=== PATIENT | female | born 1960 | race Caucasian/White ===

== ENCOUNTER 2024-10-06 18:46 | Observation (INO) | payer OTHER ==
--- OUTSIDE RECORDS SUMMARY | 2024-10-06 18:49 | XMS REPORT | Continuity of Care Document ---
Author Name Unknown Address [address] [facility] [address] [place] [address] [facility] thconnect Address [address] [facility] [place] [address] Care Team Providers Care Rn Acute Care Name Role Phone STEPHANIE GELY Primary Care Physician Terra Jane Attending Clinician NIECY Murdock APRN Attending Clinician EB Lewis APN Attending Clinician VINCENT Roach APN Attending Clinician CRISTAL Staton Attending Clinician Unavaila HI Iglesias APRN Attending Clinician LEONELA Faulkner APN Attending Clinician MEGAN Bates APN Attending Clinician Pascual saenz Encounters Start Date/Time End Date/Time Encounter Type Admission Type Attending Clinicians Care Facility Care Department Encounter ID Source 2024-07-16 11:34:00 Outpatient Terra Elias [facility] [id number] [facility] 2024-07-03 08:46:00 Outpatient Terra Elias [facility] [id number] [facility] 2024-07-01 10:48:00 Outpatient Terra Elias [facility] [id number] [facility] 2024-03-28 13:32:00 Outpatient Terra Elias [facility] [id number] [facility] 2024-03-18 10:36:01 Outpatient Terra Elias [facility] [id number] [facility] 2022-01-21 07:45:00 Inpatient NIECY JARAMILLO KAMLA [id number] [facility] 2020-02-21 10:30:00 Inpatient EB TROTTER ISH KAMLA [id number] [facility] 2023-02-10 10:50:00 2023-02-10 10:50:00 Outpatient CASIMIRO LANGNFATMATAA [facility] [id number] [facility] 2023-02-03 23:16:00 2023-02-04 02:34:00 emergency [id number] 2023-02-03 23:16:00 2023-02-04 02:34:00 Emergency ER CRISTAL CLARK [facility] [id number] [facility] 2022-12-12 08:59:00 2022-12-12 08:59:00 Outpatient HI ZARATE [facility] [id number] [facility] 2022-11-04 08:51:00 2022-11-04 08:51:00 Outpatient CASIMIRO LEONELA NIETO [facility] [id number] [facility] 2021-10-25 09:04:00 2021-10-25 09:04:00 Outpatient MEGAN LLOYD [id number] [facility] 2021-09-08 13:20:00 2021-09-08 13:20:00 Outpatient MEGAN LLOYD [id number] [facility]
[2024-10-06 19:20] LABS: Absolute Eosinophils 0.1 K/uL (0-0.5); Absolute Lymphocytes (CBC) 2.4 K/uL (0.7-4.9); Absolute Monocytes 0.5 K/uL (0.1-1.3); Basophils % 0.3 % (0-1.3); Eosinophils % 1.1 % (0-4.4); Hematocrit 39.3 % (36.0-45.0); Hemoglobin 13.5 g/dL (12.0-15.0); Lymphocytes % 40.5 % (15.3-44.8); MCH 30.6 pg (27.0-35.0); MCHC 34.3 g/dL (32.0-36.0); MCV 89.1 fL (80-100); Monocytes % 8.1 % (3.3-12.3); Nucleated Red Blood Cells % 0.2 % (0-0); Platelets 226 thou/uL (152-406); RBC Red Blood Cell Count 4.41 M/uL (3.86-4.86); Red Cell Distribution Width 14.4 % (12.1-15.2)
[2024-10-06 19:26] LABS: PT Prothrombin Time 12.4 SECONDS (10.0-13.0); Protime INR 1.09
[2024-10-06 19:40] LABS: ALT/SGPT 30 U/L (13-56); AST/SGOT 18 U/L (15-37); Albumin 3.9 g/dL (3.4-5.0); Albumin/Globulin Ratio 1.3 (1.1-1.8); Alkaline Phosphatase 89 U/L (45-117); Anion Gap 7.7 mEq/L (5.0-15.0); BUN Blood Urea Nitrogen 16 mg/dL (7-18); Bicarbonate 29 mEq/L (21-32); Bilirubin Direct 0.2 mg/dL (0-0.2); Bilirubin Indirect, Calculated 0.1 mg/dL (0.2-0.8); Bilirubin Total 0.3 mg/dL (0.2-1.0); Glomerular Filtration Rate 103 ml/min (=/>90); Glucose Level 88 mg/dL (74-106); Magnesium 1.9 mg/dL (1.6-2.4); NT PRO-BNP 25 pg/mL (<125); Potassium 3.7 mEq/L (3.5-5.1); Protein, Total 6.9 g/dL (6.4-8.2); Sodium Level 139 mEq/L (136-145)
[2024-10-06 19:41] LABS: Troponin High Sensitivity < 3.0 pg/mL (<58.9)
--- NOTE | 2024-10-06 20:11 | RAD REPORT ---
EXAMINATION: ONE VIEW CHEST XR CLINICAL INDICATION: CHEST PAIN TECHNIQUE: Frontal chest projection is submitted. Examination is limited by patient positioning and t echnique. COMPARISON: No prior exam. FINDINGS: The lungs are well inflated and clear. The heart is upper limit of normal in size. No displaced fract ures identified. IMPRESSION: No acute intrathoracic abnormalities.
--- NOTE | 2024-10-06 20:20 | EDPHYS ---
Physician Documentation [facility] Name: Petra Mas Age: 64 yrs Sex: Female : 1960 Arrival Date: 10/06/2024 Time: 18:46 Bed 4 Private MD: ED Physician Jr Palomino HPI: 10/06 19:08 This 64 yrs old Unknown Female presents to ER via Ambulatory with complaints of Chest sp3 Pain. 19:08 64-year-old female with history of myocardial infarction with stent placement, sp3 hyperlipidemia, hypertension presents to the ED with off-and-on chest pain for 1 week described as substernal in nature and dull similar to her prior [place] presentation. She denies any other symptoms including fever, shortness of breath, cough, back pain, abdominal pain, vomit, diarrhea, syncope, near syncope, focal neurological deficit, rash, known sick contacts, travel history, prolonged immobilization or prior PE or DVT, or any other signs or symptoms on ROS at this time.. Historical: - Allergies: 18:59 No Known Allergies; jl7 - Home Meds: 18:59 Plavix Oral [Active]; jl7 - PMHx: 18:59 Myocardial infarction; Hypercholesterolemia; Hypertensive disorder; jl7 - Immunization history:: Adult Immunizations unknown. - Infectious Disease History:: Denies. - Social history:: Smoking status: Patient reports the use of cigarette tobacco products, smokes one-half pack cigarettes per day. ROS: 19:09 Constitutional: Negative for fever, chills, and weight loss, Eyes: Negative for injury, sp3 pain, redness, and discharge, ENT: Negative for injury, pain, and discharge, Neck: Negative for injury, pain, and swelling, Respiratory: Negative for shortness of breath, cough, wheezing, and pleuritic chest pain, Abdomen/GI: Negative for abdominal pain, nausea, vomiting, diarrhea, and constipation, Back: Negative for injury and pain, MS/Extremity: Negative for injury and deformity, Skin: Negative for injury, rash, and discoloration, Neuro: Negative for headache, weakness, numbness, tingling, and seizure, Psych: Negative for depression, anxiety, suicide ideation, homicidal ideation, and hallucinations, Allergy/Immunology: Negative for hives, rash, and allergies, Endocrine: Negative for neck swelling, polydipsia, polyuria, polyphagia, and marked weight changes, Hematologic/Lymphatic: Negative for swollen nodes, abnormal bleeding, and unusual bruising, 19:09 All other systems are negative, Exam: 19:10 Constitutional: This is a well developed, well nourished patient who is awake, alert, sp3 and in no acute distress. Head/Face: Normocephalic, atraumatic. Eyes: Pupils equal round and reactive to light, extra-ocular motions intact. Lids and lashes normal. Conjunctiva and sclera are non-icteric and not injected. Cornea within normal limits. Periorbital areas with no swelling, redness, or edema. Neck: Trachea midline, no thyromegaly or masses palpated, and no cervical lymphadenopathy. Supple, full range of motion without nuchal rigidity, or vertebral point tenderness. No Meningismus. Cardiovascular: Regular rate and rhythm with a normal S1 and S2. No gallops, murmurs, or rubs. Normal PMI, no JVD. No pulse deficits. Respiratory: Lungs have equal breath sounds bilaterally, clear to auscultation and percussion. No rales, rhonchi or wheezes noted. No increased work of breathing, no retractions or nasal flaring. Abdomen/GI: Soft, non-tender, with normal bowel sounds. No distension or tympany. No guarding or rebound. No evidence of tenderness throughout. Back: No spinal tenderness. No costovertebral tenderness. Full range of motion. Skin: Warm, dry with normal turgor. Normal color with no rashes, no lesions, and no evidence of cellulitis. MS/ Extremity: Pulses equal, no cyanosis. Neurovascular intact. Full, normal range of motion. Neuro: Awake and alert, GCS 15, oriented to person, place, time, and situation. Cranial nerves II-XII grossly intact. Motor strength 5/5 in all extremities. Sensory grossly intact. Cerebellar exam normal. Normal gait. Psych: Awake, alert, with orientation to person, place and time. Behavior, mood, and affect are within normal limits. 19:10 ECG was reviewed by the Attending Physician. EKG demonstrates sinus bradycardia 55 bpm with normal intervals, normal QRS, normal axis, nonspecific diffuse ST/T changes without evidence of acute ischemia. 19:10 Chest/axilla: Normal chest wall appearance and motion. Nontender with no deformity. sp3 No lesions are appreciated. Vital Signs: 18:57 BP 125 / 80; Pulse 60; Resp 15; Temp 97.9; Pulse Ox 100% ; Weight 80.74 kg; Height 5 jl7 ft. 6 in. ; Pain 8/10; 20:10 BP 118 / 68; Pulse 59; Resp 12; Pulse Ox 98% on R/A; le1 18:57 Body Mass Index 28.73 (80.74 kg, 167.64 cm) 7 18:57 Pain Scale: Adult jl7 MDM: 18:58 Medical Screening Exam initiated sp3 19:10 Data reviewed: vital signs, nurses notes, lab test result(s), EKG, radiologic studies. sp3 ED course: 64-year-old female with chest pain in setting of cardiac history. Differential diagnosis includes acute coronary syndrome, muscle skeletal pain, other pulmonary process, influenza, COVID, among others. Workup will include EKG, chest x-ray general labs including troponin and nasal swabs. Disposition probable admission for 23 observation and cardiology consultation.. 10/06 18:59 Order name: Basic Metabolic Panel; Complete Time: 20:17 sp3 10/06 18:59 Order name: CBC with Diff; Complete Time: 20:17 sp3 10/06 18:59 Order name: LFT's; Complete Time: 20:17 sp3 10/06 18:59 Order name: Magnesium; Complete Time: 20:17 sp3 10/06 18:59 Order name: NT PRO-BNP; Complete Time: 20:17 sp3 10/06 18:59 Order name: PT-INR; Complete Time: 20:17 sp3 10/06 18:59 Order name: Troponin HS; Complete Time: 20:17 sp3 10/06 19:11 Order name: COVID-19 Ag + Flu A+B Ag; Complete Time: 20:35 sp3 10/06 21:37 Order name: Basic Metabolic Panel EDMS 10/06 21:37 Order name: Basic Metabolic Panel EDMS 10/06 21:37 Order name: CBC with Automated Diff EDMS 10/06 21:37 Order name: CBC with Automated Diff EDMS 10/06 21:37 Order name: Troponin High Sensitivity EDMS 10/06 21:37 Order name: Troponin High Sensitivity EDMS 10/06 21:37 Order name: Troponin High Sensitivity EDMS 10/06 21:37 Order name: Troponin High Sensitivity EDMS 10/06 18:59 Order name: XRAY Chest (1 view); Complete Time: 20:17 sp3 10/06 21:37 Order name: Echo with Doppler EDMS 10/06 18:59 Order name: EKG; Complete Time: 18:59 sp3 10/06 18:59 Order name: Cardiac monitoring; Complete Time: 19:02 sp3 10/06 18:59 Order name: EKG - Nurse/Tech; Complete Time: 19:02 sp3 10/06 18:59 Order name: IV Saline Lock; Complete Time: 19:08 sp3 10/06 18:59 Order name: Labs collected and sent; Complete Time: 19:08 sp3 10/06 18:59 Order name: O2 Per Protocol; Complete Time: 19:08 sp3 10/06 18:59 Order name: O2 Sat Monitoring; Complete Time: 19:08 sp3 Administered Medications: No medications were administered Disposition Summary: 10/06/24 20:19 Hospitalization Ordered Notes: Hospitalization Status: Observation sp3 Provider: Prince Ramses sp3 Location: Telemetry/MedSurg (observation) sp3 Condition: Stable sp3 Problem: an acute exacerbation sp3 Symptoms: have worsened sp3 Bed/Room Type: Standard sp3 Room Assignment: [facility](10/06/24 21:08) vc1 Diagnosis - Chest pain sp3 Forms: - Medication Reconciliation Form sp3 - SBAR form sp3 - Leadership Thank You Letter sp3 Signatures: Dispatcher [employer] Kyle Sanches RN RN jl7 Jr Palomino MD MD sp3 Tracy Aly RN RN vc1 Corrections: (The following items were deleted from the chart) 21:08 20:19 sp3 vc1 21:43 21:37 Troponin High Sensitivity ordered. EDMS EDMS
--- NOTE | 2024-10-06 20:20 | ER ---
Nurse's Notes [facility] Name: Petra Mas Age: 64 yrs Sex: Female : 1960 Arrival Date: 10/06/2024 Time: 18:46 Bed 4 Private MD: Diagnosis: Chest pain Presentation: 10/06 18:57 Chief complaint: Patient states: Midsternal CP x 1 week, radiates straight to back. jl7 Coronavirus screen: At this time, the client does not indicate any symptoms associated with coronavirus-19. Ebola Screen: No symptoms or risks identified at this time. Initial Sepsis Screen: Does the patient meet any 2 criteria? No. Patient's initial sepsis screen is negative. Does the patient have a suspected source of infection? No. Patient's initial sepsis screen is negative. Risk Assessment: Do you want to hurt yourself or someone else? Patient reports no desire to harm self or others. Onset of symptoms was September 29, 2024. 18:57 Method Of Arrival: Ambulatory [facility] 18:57 Acuity: JAMISON 2 jl7 Triage Assessment: 18:59 General: Appears in no apparent distress. uncomfortable, Behavior is calm, cooperative, jl7 appropriate for age. Pain: Complains of pain in mid-sternal area Pain currently is 8 out of 10 on a pain scale. Cardiovascular: Patient's skin is warm and dry. Historical: - Allergies: 18:59 No Known Allergies; jl7 - Home Meds: 18:59 Plavix Oral [Active]; jl7 - PMHx: 18:59 Myocardial infarction; Hypercholesterolemia; Hypertensive disorder; jl7 - Immunization history:: Adult Immunizations unknown. - Infectious Disease History:: Denies. - Social history:: Smoking status: Patient reports the use of cigarette tobacco products, smokes one-half pack cigarettes per day. Screenin:10 [facility] ED Fall Risk Assessment (Adult) History of falling in the last 3 months, le1 including since admission No falls in past 3 months (0 pts) Confusion or Disorientation No (0 pts) Intoxicated or Sedated No (0 pts) Impaired Gait No (0 pts) Mobility Assist Device Used No (0 pt) Altered Elimination No (0 pt) Score/Fall Risk Level 0 - 2 = Low Risk Oriented to surroundings, Maintained a safe environment, Educated pt \T\ family on fall prevention, incl call for assistance when getting out of bed, Assessed \T\ reinforced patient's understanding of fall precautions, Hourly rounding (assess needs \T\ fall precautionary measures) done. Abuse screen: Denies threats or abuse. Denies injuries from another. Nutritional screening: No deficits noted. Tuberculosis screening: No symptoms or risk factors identified. Assessment: 20:09 General: Appears in no apparent distress. comfortable, Behavior is calm, cooperative, le1 appropriate for age. Pain: Complains of pain in chest Pain does not radiate. Pain currently is 4 out of 10 on a pain scale. Quality of pain is described as pressure, Pain began. Neuro: No deficits noted. Cardiovascular: No deficits noted. Respiratory: No deficits noted. GI: No deficits noted. : No deficits noted. EENT: No deficits noted. Vital Signs: 18:57 BP 125 / 80; Pulse 60; Resp 15; Temp 97.9; Pulse Ox 100% ; Weight 80.74 kg; Height 5 jl7 ft. 6 in. ; Pain 8/10; 20:10 BP 118 / 68; Pulse 59; Resp 12; Pulse Ox 98% on R/A; le1 18:57 Body Mass Index 28.73 (80.74 kg, 167.64 cm) jl7 18:57 Pain Scale: Adult jl7 ED Course: 18:49 Patient arrived in ED. am2 18:58 Jr Palomino MD is Attending Physician. sp3 18:59 Triage completed. jl7 18:59 Arm band placed on right wrist. jl7 19:08 Troponin HS Sent. kb4 19:08 PT-INR Sent. kb4 19:08 Magnesium Sent. kb4 19:08 LFT's Sent. kb4 19:08 CBC with Diff Sent. kb4 19:08 Basic Metabolic Panel Sent. kb4 19:08 NT PRO-BNP Sent. kb4 19:08 Initial lab(s) drawn, by me, sent to lab. EKG done. Inserted saline lock: 20 gauge in kb4 left antecubital area, using aseptic technique. Blood collected. Flushed with 10 mL NS. 19:43 Faith Holley, RN is Primary Nurse. le1 20:05 XRAY Chest (1 view) In Process Unspecified. EDMS 20:10 Patient has correct armband on for positive identification. Bed in low position. Call le1 light in reach. Side rails up X2. Provided Education on: Informed to use call light if needing assistance. . Client placed on continuous cardiac and pulse oximetry monitoring. NIBP monitoring applied. fish hatchery assistant on. Pulse ox on. NIBP on. 20:19 Prince Pearce MD is Hospitalizing Provider. sp3 22:59 No provider procedures requiring assistance completed. Patient admitted, IV remains in ha1 place. Patient maintains SpO2 saturation greater than 95% on room air. Administered Medications: No medications were administered Medication: 23:00 VIS not applicable for this client. ha1 Outcome: 20:19 Decision to Hospitalize by Provider. sp3 22:59 Admitted to Tele accompanied by tech, via wheelchair, room 412, with chart, ha1 22:59 Condition: stable 22:59 Instructed on the need for admit, Demonstrated understanding of instructions, 23:01 Patient left the ED. ha1 Signatures: Dispatcher [employer] EDMS Kyle Diego RN RN mira7 Erica Gonzales am2 Jr Palomino MD MD sp3 Gemma Valdes RN RN ha1 Faith Holley RN RN le1 Laura Silver kb4
[2024-10-06 20:31] LABS: Influenza A Ag Negative; Influenza B Ag Negative; SARS-CoV-2 Antigen Rapid Res Negative (Negative)
[2024-10-06] MEDS ORDERED: NITROGLYCERIN 0.4 MG/TAB SL PRN (21:33)
[2024-10-06] MEDS ORDERED: SODIUM CHLORIDE 0.9% 10ML INJ IV PRN (21:35)
[2024-10-06] MEDS: PANTOPRAZOLE 40 MG INJ IVP SCH (21:35)
--- NOTE | 2024-10-06 21:40 | P.HP ---
Certification for Inpatient Patient admitted to: Observation With expected LOS: <2 Midnights Practitioner: I am a practitioner with admitting privileges, knowledge of patient current condition, hospital course, and medical plan of care. Services: Services provided to patient in accordance with Admission requirements found in Title 42 Section 412.3 of the Code of Federal Regulations Patient History Date of Service: 10/06/24 Reason for admission: Chest pain History of Present Illness: Patient is a 64-year-old female with a past medical history of hypertension, non-insulin diabetes mellitus, hyperlipidemia and coronary disease status post PCI back in 2019 in [place]. She presented to the ER complaining of chest pain radiating to the back and to her left upper extremity. She denies orthopnea or lower extremity edema. Patient is reporting paresthesia of her left hand. She is not out of her nitroglycerin. Therefore, she did not take any medication when her symptoms started. Patient states she has been dealing with a lot of stress recently. She just lost her back in May 2024. Her first troponin in the ER is negative. Allergies No Known Allergies Allergy (Unverified 10/06/24 20:55) Physical Examination - Physical Exam General: Acute distress HEENT: Atraumatic, Normocephalic Respiratory: Clear to auscultation bilaterally, Normal air movement Cardiovascular: No edema, Normal pulses, Regular rate/rhythm, Normal S1 S2 Neurological: Normal speech - Studies Laboratory Data (last 24 hrs) 10/06/24 10/06/24 10/06/24 19:12 19:12 19:12 WBC 6.00 Hgb 13.5 Hct 39.3 Plt Count 226 PT 12.4 INR 1.09 Sodium 139 Potassium 3.7 BUN 16 Creatinine 0.53 L Glucose 88 Magnesium 1.9 Total Bilirubin 0.3 AST 18 ALT 30 Alkaline Phosphatase 89 Assessment and Plan - Problems (Diagnosis) (1) Chest pain Current Visit: Yes Status: Acute (2) Coronary artery disease Current Visit: Yes Status: Acute (3) Hypertension Current Visit: Yes Status: Acute (4) Hyperlipidemia Current Visit: Yes Status: Acute (5) Type 2 diabetes mellitus Current Visit: Yes Status: Acute - Plan Assessment This is a 64-year-old female with known history of coronary disease status post PCI back in 2019. She is being admitted for ACS rule out after she presented with chest pain radiating to her back and left upper extremity. Her first troponin is negative. Patient is slightly hypotensive in the ER with SBP of 105 mmHg. Chest pain, ACS rule out Hypotension Coronary disease status post PCI Type 2 diabetes mellitus Hyperlipidemia Hypertension Plan: Will admit under observation with telemetry Trend troponins Obtain a 2D echo and lipid panel Will give a trial of IV PPI to address out stress-induced ulcer Cardiology consulted in the morning Monitor for blood pressure Reconcile rest of home medications - Advance Directives Does patient have a Living Will: No Does patient have a Durable POA for Healthcare: No
[2024-10-06] MEDS ORDERED: PANTOPRAZOLE 40 MG INJ ONE (22:45)
[2024-10-06 22:59] VITALS: BMI 30.2
[2024-10-07 06:23] LABS: Absolute Eosinophils 0.1 K/uL (0-0.5); Absolute Lymphocytes (CBC) 2.3 K/uL (0.7-4.9); Absolute Monocytes 0.4 K/uL (0.1-1.3); Absolute Neutrophil 1.8 K/uL (1.8-8.0); Basophils % 0.3 % (0-1.3); Eosinophils % 2.2 % (0-4.4); Hematocrit 37.5 % (36.0-45.0); Hemoglobin 12.9 g/dL (12.0-15.0); Lymphocytes % 49.6 % (15.3-44.8); MCHC 34.5 g/dL (32.0-36.0); MCV 89.8 fL (80-100); Monocytes % 8.2 % (3.3-12.3); Neutrophils % 39.7 % (41.7-73.7); Nucleated Red Blood Cells % 0.1 % (0-0); Platelets 216 thou/uL (152-406); RBC Red Blood Cell Count 4.17 M/uL (3.86-4.86); Red Cell Distribution Width 14.8 % (12.1-15.2)
[2024-10-07 06:40] LABS: Anion Gap 4.8 mEq/L (5.0-15.0); Potassium 3.8 mEq/L (3.5-5.1); Troponin High Sensitivity 3.8 pg/mL (<58.9)
[2024-10-07 07:57] LABS: Blood Morphology Comment NOTED (NOT SEEN); Differential Total Cells Count 100; Eosinophils 3 % (0-3); Lymphocytes 51 % (15-42); Monocytes 8 % (0-10); Platelet Estimate ADEQ; Segmented Neutrophils 36 % (40-80)
[2024-10-07 07:58] LABS: Burr Cells 1+
[2024-10-07] MEDS: ASPIRIN EC 81 MG TAB PO SCH (08:35)
[2024-10-07] MEDS: ENOXAPARIN 40 MG/0.4 ML SQ SCH (08:36)
--- NOTE | 2024-10-07 09:11 | P.CNS ---
Date of Consult: 10/07/24 Chief Complaint: Chest pain History of Present Illness: Patient with PMH of CAD, PCI 2020 in [place], HTN, HLD, DM presented with unstable angina for 1 week, denies any other cardiac symptoms. Allergies No Known Allergies Allergy (Unverified 10/06/24 20:55) Home medications list reviewed: Yes Home Medications: Cholecalciferol (Vitd3)/Vit K2 [Vit D3-Vit K2 125-100 Mcg Sfgl] 125 mcg PO DAILY 10/06/24 Clopidogrel Bisulfate [Plavix] 75 mg PO DAILY 10/06/24 Fluticasone [Flonase 50MCG Nasal [place]*] 1 spray VIOLA BID 10/06/24 Naproxen Sodium [Aleve] 1 tab PO BID PRN 10/06/24 RX: Albuterol Sulfate [Proair Respiclick] 1 puff IH Q4HR PRN 10/06/24 RX: Atorvastatin Calcium [Lipitor] 80 mg PO DAILY 10/06/24 RX: Azithromycin Tab [Zithromax*] 250 mg PO DAILY 10/06/24 RX: Metoprolol Tartrate [Lopressor*] 25 mg PO BID 10/06/24 RX: Promethazine Syrup [Phenergan*] 5 ml PO Q6HR PRN 10/06/24 RX: Sertraline HCl [Zoloft] 100 mg PO BID 10/06/24 RX: Tramadol HCl [Ultram] 50 mg PO ONCE PRN 10/06/24 RX: Trazodone HCl 50 mg PO BEDTIME PRN 10/06/24 lisinopriL [Lisinopril] 5 mg PO DAILY 10/06/24 predniSONE [Prednisone] 2 tab PO DAILY 10/06/24 - Past Medical/Surgical History -: hysterectomy -: gall bladder -: stents - Social History Smoking Status: Current every day smoker Alcohol use: No CD- Drugs: No Caffeine use: Yes Place of Residence: Home Review of Systems 10-point ROS is otherwise unremarkable Physical Examination Temp Pulse Resp BP Pulse Ox 97.4 F 60 18 109/61 98 10/07/24 08:00 10/07/24 08:00 10/07/24 08:00 10/07/24 08:00 10/07/24 08:00 General: Alert, In no apparent distress HEENT: Atraumatic, PERRLA, Mucous membr. moist/pink, EOMI, Sclerae nonicteric Neck: Supple, 2+ carotid pulse no bruit, No LAD, Without JVD or thyroid abnormality Respiratory: Clear to auscultation bilaterally, Normal air movement Cardiovascular: Regular rate/rhythm, Normal S1 S2 Gastrointestinal: Normal bowel sounds, No tenderness Musculoskeletal: No tenderness Integumentary: No rashes Neurological: Normal gait, Normal speech, Normal tone, Normal affect Lymphatics: No axilla or inguinal lymphadenopathy Laboratory Data (last 24 hrs) 10/06/24 10/06/24 10/06/24 19:12 19:12 19:12 WBC 6.00 Hgb 13.5 Hct 39.3 Plt Count 226 PT 12.4 INR 1.09 Sodium 139 Potassium 3.7 BUN 16 Creatinine 0.53 L Glucose 88 Magnesium 1.9 Total Bilirubin 0.3 AST 18 ALT 30 Alkaline Phosphatase 89 - Problems (1) Unstable angina Current Visit: Yes Status: Acute Plan: NPO for coronary angiogram ASA 81 mg daily Lipitor 80 mg daily get echo (2) Hyperlipidemia Current Visit: Yes Status: Acute Plan: continue lipitor (3) Hypertension Current Visit: Yes Status: Acute Plan: reconcile and resume her home medications.
[2024-10-07] MEDS: ACETAMINOPHEN 500 MG TAB PO PRN (10:26)
[2024-10-07] MEDS: NA CHLORIDE 0.9% 500 ML ONE (11:08)
[2024-10-07] MEDS ORDERED: HEPARIN 10,000 UNIT/10 ML VIAL IV ONE (11:19)
[2024-10-07] MEDS ORDERED: HEPA 1000U/500MLS 2,000 UNIT/1,000 ML BAG IV ONE (11:19)
[2024-10-07] MEDS ORDERED: LIDOCAINE 1% 20 ML MDV ONE (11:20)
[2024-10-07] MEDS ORDERED: HEPARIN 5000 UNIT/ML 1 ML VIAL ONE (11:20)
--- NOTE | 2024-10-07 11:52 | P.PN ---
Date of Service: 10/07/24 Subjective: ROS: 10 point ROS as noted above, otherwise negative Physical Exam: GEN: Alert, oriented, NAD CV: Regular rate and rhythm, no edema Pulm: Nonlabored respirations on room air, clear bilaterally ABD: soft, nontender, nondistended Integumentary: No rashes Neuro: Normal speech, normal affect Problem List: Unstable Angina Hx of CAD s/p PCI (2019) Hypertension Hyperlipidemia NIDDM2 Unstable Angina Hx of CAD s/p PCI (2019) on admission, presents with chest pain radiating to left upper extremity. Denies edema/orthopnea trend troponin's - negative x2 so far Monitor on telemetry echo completed; pending official report Dr. Mcclain planning for C NPO for [facility] aspirin, statin PRN nitro Hypertension Hyperlipidemia confirm home meds, restart as appropriate NIDDM2 accu-cheks, SSI VTE: Lovenox Code: Full Dispo: Home Pending LHC, cardiology recs Time Spent Managing Pts Care (In Minutes): 55
--- NOTE | 2024-10-07 12:04 | EKG ---
Test Date: 2024-10-06 Test Time: 18:53:55 [employer] Dive Training Instructor: SCARLET MEASUREMENT RESULTS: Intervals: Rate: 55 NE: 148 QRSD: 78 QT: 410 QTc: 392 Jones: P: 40 NE: 148 QRS: 48 T: 25 INTERPRETIVE STATEMENTS: Sinus bradycardia T wave abnormality, consider anterior ischemia Abnormal ECG No previous ECG available for comparison Electronically Signed On 10-07-24 12:02:33 COLLAR SEWER by Pan Mcclain
[2024-10-07] MEDS ORDERED: MIDAZOLAM HCL 2 MG/2 ML INJ ONE (12:15)
[2024-10-07] MEDS ORDERED: FENTANYL CITR 100 MCG/2 ML ONE (12:15)
[2024-10-07] MEDS ORDERED: CLOPIDOGREL 75 MG TABLET ONE (12:16)
[2024-10-07] MEDS ORDERED: TICAGRELOR 90 MG TABLET PO ONE (12:16)
[2024-10-07 12:31] VITALS: TEMP 97.8
--- NOTE | 2024-10-07 12:52 | ECHO ---
HEIGHT: 5 ft 4 in WEIGHT: 176 lb 0 oz DATE OF STUDY: 10/07/[address]: Prince Gianni Peacre MD 2-DIMENSIONAL: YES M.MODE: YES DOPPLER: YES COLOR FLOW: YES TDS: PORTABLE: YES DEFINITY: BUBBLE STUDY: DIAGNOSIS: CHEST PAIN CARDIAC HISTORY: CATHERIZATION: YES SURGERY: PROSTHETIC VALVE: PACEMAKER: MEASUREMENTS (cm) DIASTOLIC (NORMALS) SYSTOLIC (NORMALS) IVSd 1.0 (0.6-1.2) LA Diam 2.7 (1.9-4.0) LVEF 61% LVIDd 4.8 (3.5-5.7) LVIDs 3.3 (2.0-3.5) %FS 33% LVPWd 1.1 (0.6-1.2) Ao Diam 2.6 (2.0-3.7) 2 DIMENSIONAL ASSESSMENT: RIGHT ATRIUM: NORMAL LEFT ATRIUM: NORMAL RIGHT VENTRICLE: NORMAL LEFT VENTRICLE: NORMAL TRICUSPID VALVE: TRACE TRICUSPID REGURGITATION MITRAL VALVE: TRACE MITRAL REGURGITATION PULMONIC VALVE: NORMAL AORTIC VALVE: NORMAL PERICARDIAL EFFUSION: NONE AORTIC ROOT: NORMAL LEFT VENTRICULAR WALL MOTION: NORMAL DOPPLER/COLOR FLOW: GRADE I DIASTOLIC DYSFUNCTION COMMENTS: 1. NORMAL LEFT VENTRICULAR SYSTOLIC FUNCTION, EJECTION FRACTION 60-65%, NORMAL WALL MOTION 2. GRADE I DIASTOLIC DYSFUNCTION 3. NORMAL FILLING PRESSURE (0-5 mmHg) TECHNOLOGIST: VITA RAMOS
[2024-10-07 14:25] VITALS: O2SAT 100
[2024-10-07 16:10] VITALS: BP 109/50
[2024-10-07] MEDS ORDERED: ATORVASTATIN 80 MG TAB PO SCH (21:00)
--- NOTE | 2024-10-07 22:19 | OP ---
Date of Procedure: 10/07/2024 Surgeon: Pan Mcclain Procedure Performed: Selective coronary angiogram. Indication For Procedure: Unstable angina. Complications: None. Estimated Blood Loss: Less than 50 cc. Access: Right radial, closed by TR band. Sedation Time: 20 minutes with 1 of Versed and 25 of fentanyl. Description Of Procedure: After risks, benefits, and alternatives were explained to the patient, the patient agreed to proceed with procedure and signed informed consent. The patient was brought back to the laboratory mechanic helper, prepped and draped in sterile fashion. Time-out was performed. Sedation was admini stered. Next, right radial access was obtained using ultrasound-guided micropuncture technique. Tig er 4 catheter was advanced over J-wire to the aortic root. Selective angiogram was done. At the end of procedure, catheter was removed over a J-wire. Sheath was removed. TR band was applied. Hemost asis was achieved. The patient was moved back to recovery in stable condition. Findings: 1. Left main: Normal. 2. LAD: Proximal diffuse 20% to 30% disease, mid stent patent, then distal mild luminal irregulariti es. 3. Left circumflex: Mild luminal irregularities. 4. RCA: Proximal to mid 30% to 40% disease and mild luminal irregularities. Assessment And Plan: Mild left anterior descending and right coronary artery disease with patent mid left anterior descending stent. Plan is to continue medical treatment. KHADIJAH Voice ID: [id number] Report ID: [id number]
--- NOTE | 2024-10-14 16:34 | P.DS ---
Admission Date: 10/06/24 Discharge Date: 10/07/24 Disposition: ROUTINE DISCHARGE Discharge Condition: GOOD Reason for Admission: Chest pain Vital Signs/Physical Exam: Temp Pulse Resp BP Pulse Ox 97.8 F 57 16 109/50 L 99 10/07/24 16:00 10/07/24 16:00 10/07/24 16:00 10/07/24 16:00 10/07/24 16:00 Laboratory Data at Discharge: WBC 4.60 thou/uL (4.3-10.9) 10/07/24 05:37 Hgb 12.9 g/dL (12.0-15.0) 10/07/24 05:37 Hct 37.5 % (36.0-45.0) 10/07/24 05:37 Plt Count 216 thou/uL (152-406) 10/07/24 05:37 PT 12.4 SECONDS (10.0-13.0) 10/06/24 19:12 INR 1.09 10/06/24 19:12 Sodium 142 mEq/L (136-145) 10/07/24 05:37 Potassium 3.8 mEq/L (3.5-5.1) 10/07/24 05:37 BUN 14 mg/dL (7-18) 10/07/24 05:37 Creatinine 0.42 mg/dL (0.55-1.02) L 10/07/24 05:37 Glucose 87 mg/dL (74-106) 10/07/24 05:37 Magnesium 1.9 mg/dL (1.6-2.4) 10/06/24 19:12 Total Bilirubin 0.3 mg/dL (0.2-1.0) 10/06/24 19:12 AST 18 U/L (15-37) 10/06/24 19:12 ALT 30 U/L (13-56) 10/06/24 19:12 Alkaline Phosphatase 89 U/L (45-117) 10/06/24 19:12 Lipase 28 U/L (13-75) 10/07/24 05:37 Home Medications: Albuterol Sulfate [Proair Respiclick] 1 puff IH Q4HR PRN 10/06/24 Atorvastatin Calcium [Lipitor] 80 mg PO DAILY 10/06/24 Azithromycin Tab [Zithromax*] 250 mg PO DAILY 10/06/24 Cholecalciferol (Vitd3)/Vit K2 [Vit D3-Vit K2 125-100 Mcg Sfgl] 125 mcg PO DAILY 10/06/24 Clopidogrel Bisulfate [Plavix] 75 mg PO DAILY 10/06/24 Fluticasone [Flonase 50MCG Nasal [place]*] 1 spray VIOLA BID 10/06/24 Metoprolol Tartrate [Lopressor*] 25 mg PO BID 10/06/24 Promethazine Syrup [Phenergan*] 5 ml PO Q6HR PRN 10/06/24 Sertraline HCl [Zoloft] 100 mg PO BID 10/06/24 Tramadol HCl [Ultram] 50 mg PO ONCE PRN 10/06/24 Trazodone HCl 50 mg PO BEDTIME PRN 10/06/24 lisinopriL [Lisinopril] 5 mg PO DAILY 10/06/24 predniSONE [Prednisone] 2 tab PO DAILY 10/06/24 Physician Discharge Instructions: Physician discharge instructions: Patient presented with chest pain x1 week. Troponin's were negative x3. EKG without STEMI criteria. Rest of her labwork on admission was unremarkable. Patient was seen and evaluated by Dr. Mcclain, cardiology. Given her presentation of symptoms and prior cardiac history, recommended left heart cath to further evaluate. Left heart cath done 3 no significant stenosis/atherosclerosis to warrant intervention. Patient was feeling better, chest pain improved, breathing okay on room air and was deemed stable for discharge. Echocardiogram was done this hospitalization, however pending official report. Follow up with cardiology in 2-4 weeks for further management, and to discuss echo results. Discussed with patient. Symptoms most consistent with gastritis / acid reflux. She has been taking ibuprofen/NSAIDs twice a day for years, recently started mounjaro in last few months with ~40lb weight loss, occasionally takes toradol pills for arthtritic pain, has been eating more citrus / acidic foods recently, and ran out of her omeprazole ~1 week ago, after taking it fairly consistently for ~2 years. Discussed how each of these would increase the risk for gastritis / gastric ulcer, and she has multiple. Recommend restarting her prilosec - if she feels her pain continue/recur, can take twice a day for a few days, then wean back down to once a day. Discussed after symptoms are stable, to consider switching to pepcid in ~1 month or so. Avoid NSAIDs - ibuprofen/Naproxen Avoid acidic foods. Follow up with PCP, Consider GI referral. Medications: continue/restart home omeprazole Follow up: PCP 3-5 days GI as needed Please call to schedule / confirm appointments Followup: Terra Elias MD [Primary Care Provider] -
== END 2024-10-07 17:49 | disposition home or self-care (01) ==
LOC: ER 18:46 → 4TH 21:33
PROVIDERS: ADMIT Internal Medicine; ATTEND Hospitalist
PROC: B2111ZZ Fluoroscopy of Multiple Coronary Arteries using Low Osmolar Contrast (ICD-10-PCS; principal; 2024-10-06)
DX: I25.110 Atherosclerotic heart disease of native coronary artery with unstable angina pectoris (principal); I10 Essential (primary) hypertension; E78.5 Hyperlipidemia, unspecified; E11.9 Type 2 diabetes mellitus without complications; I95.9 Hypotension, unspecified; I25.2 Old myocardial infarction; Z95.5 Presence of coronary angioplasty implant and graft; F17.210 Nicotine dependence, cigarettes, uncomplicated; Z79.899 Other long term (current) drug therapy; Z88.5 Allergy status to narcotic agent; Z11.52 Encounter for screening for COVID-19
CPT/HCPCS: 93005; 93306; 85025 ×2; 80048 ×2; 36415; 83735; 85610; 82947 ×3; 80076; 84484 ×2; 83690; 83880; 71045; 93454; 76937; 99285; 87428; C1893; Q9966; J1644; J2003; J2470 ×2; J1650; J2250; J3010; G0378 ×4; J7040; 99152; 99153